=== PATIENT | male | born 1975 | race Caucasian/White ===

== ENCOUNTER 2022-07-30 08:15 | Outpatient (RCR) | payer BC, SELFPAY ==
[2022-06-23 09:29] VITALS: BP 118/79; PULSE 71; RESP 16; TEMP 36.8; O2SAT 99
[2022-06-23] MEDS: METHYLPREDNISOLONE SOD SUCC 1,000 MG in 0.9 % SODIUM CHLORIDE 100 ml 100 ML 116 MG IVPB (10:23)
[2022-06-23] MEDS: 0.9 % SODIUM CHLORIDE 250 ml IV (11:19)
[2022-06-24] MEDS: METHYLPREDNISOLONE SOD SUCC 1,000 MG in 0.9 % SODIUM CHLORIDE 100 ml 100 ML 116 MG IVPB (09:48)
[2022-06-24] MEDS: 0.9 % SODIUM CHLORIDE 250 ml IV (09:48)
[2022-06-24 09:54] VITALS: BP 145/89; PULSE 82; RESP 16; TEMP 36.7; O2SAT 100
--- NOTE | 2022-06-24 11:18 | ONC.NURNOTE ---
IV left in place for Infusion tomorrow. Patient and family understand and willing to leave it in.
[2022-06-25 10:52] VITALS: BP 122/79; PULSE 65; RESP 16; TEMP 37; O2SAT 99
[2022-06-25] MEDS: METHYLPREDNISOLONE SOD SUCC 1,000 MG in 0.9 % SODIUM CHLORIDE 100 ml 100 ML 116 MG IVPB (11:20)
[2022-07-02] MEDS: METHYLPREDNISOLONE SOD SUCC 1,000 MG in 0.9 % SODIUM CHLORIDE 100 ml 100 ML 116 MG IVPB (08:30)
[2022-07-02] MEDS: 0.9 % SODIUM CHLORIDE 250 ml IV (08:30)
[2022-07-02 08:32] VITALS: BP 109/71; PULSE 82; RESP 16; TEMP 36.8; O2SAT 98
[2022-07-09 08:00] VITALS: BP 117/79; PULSE 68; RESP 14; TEMP 36.9; O2SAT 99
[2022-07-09] MEDS: METHYLPREDNISOLONE SOD SUCC 1,000 MG in 0.9 % SODIUM CHLORIDE 100 ml 100 ML 116 MG IVPB (08:29)
[2022-07-09] MEDS: 0.9 % SODIUM CHLORIDE 250 ml IV (08:29)
--- NOTE | 2022-07-09 13:11 | ONC.NURNOTE ---
states feeling much better lately. states the infusions raise his blood sugars for 2 days . is following up closely with him MD. adjusting insulin as perscribed by MD. states some edema BLE for 2 days after insfusion. pts looks alert. and smiling. [employer] present. [employer] to take tylenol 650mg and benadryl 25mg every 4 hrs prn for discomfort.
[2022-07-16] MEDS: 0.9 % SODIUM CHLORIDE 250 ml IV (08:35)
[2022-07-16] MEDS: METHYLPREDNISOLONE SOD SUCC 1,000 MG in 0.9 % SODIUM CHLORIDE 100 ml 100 ML 116 MG IVPB (08:35)
--- NOTE | 2022-07-16 14:51 | ONC.NURNOTE ---
Addendum entered by Abigail Cristina RN 07/16/22 15:24: Called Zev and his to relay the message below. Both verbalized understanding and appreciated the call with the update. Original Note: Infusion nurse called order providers office to see when patient will be scheduled to be seen following the email to [facility] about seeing patient in [address] Alejo noted that patient was on her radar to contact next week to see how he is doing. She would like patient to continue to do weekly for the 16 weeks as ordered, and will let us know if something changes based on her conversation with patient next week. She wants us to continue as ordered for now with the methylprednisolone.
[2022-07-23 08:02] VITALS: BP 127/83; PULSE 91; RESP 14; TEMP 36.6; O2SAT 99
--- NOTE | 2022-07-23 08:08 | ONC.NURNOTE ---
Patient states that he talked with his provider in [place] on Tuesday and they are moving ahead with trying to get coverage for his IVIG down in [place]. In the meantime, patient is to continue with his weekly methylprednisolone here in [place]. Patient will let us know when patient will be switching to [place] for all infusions.
[2022-07-23] MEDS: METHYLPREDNISOLONE SOD SUCC 1,000 MG in 0.9 % SODIUM CHLORIDE 100 ml 100 ML 116 MG IVPB (08:20)
[2022-07-23] MEDS: 0.9 % SODIUM CHLORIDE 250 ml IV (08:21)
[2022-07-30 08:14] VITALS: BP 124/80; PULSE 85; RESP 16; TEMP 36.6; O2SAT 96
[2022-07-30] MEDS: METHYLPREDNISOLONE SOD SUCC 1,000 MG in 0.9 % SODIUM CHLORIDE 100 ml 100 ML 116 MG IVPB (09:13)
[2022-07-30] MEDS: 0.9 % SODIUM CHLORIDE 250 ml IV (09:13)
--- NOTE | 2022-08-05 15:02 | ONC.NURNOTE ---
called to cancel weekly infusions Zev will be receiving at [facility] now, he will be receiving 2 infusions and has appts for tomorrow at [facility]
== END 2022-12-20 23:59 | disposition home or self-care (01) ==
LOC: CCIC 08:15
PROVIDERS: PCP Family Medicine; Referring Provider Family Medicine; Visit Provider Clinical Nurse Specialist
DX: G72.49 Other inflammatory and immune myopathies, not elsewhere classified (principal)
CPT/HCPCS: 96365; T1013; J2930; J7050